=== PATIENT | female | born 1985 | race Caucasian/White ===

== ENCOUNTER → 2016-06-13 | Outpatient (CLI) | payer BC ==
--- NOTE | 2016-06-13 18:12 | CT ---
EXAMINATION TYPE: CT sinus w con DATE OF EXAM: 06/13/2016 5:33 PM COMPARISON: NONE HISTORY: Sinus pain and pressure to maxillary region, radiating down left jaw. CT DLP: 613.00 mGycm Automated exposure control for dose reduction was used. CONTRAST: CT scan of the facial bones is performed with IV Contrast, patient injected with 100 mL of Omnipaque 300. TECHNIQUE: CT scan of the sinuses is performed without contrast, axial images are obtained, coronal r eformatted images are also reviewed. FINDINGS: There is bilateral patency of the ostiomeatal complex. There is fairly normal aeration of t he paranasal sinuses. There is a 5 mm mucous retention cyst in the left maxillary sinus. Orbital kanika ins are intact. There is no pathologic enhancement. Maxilla is intact. Mastoid air cells show normal aeration. IMPRESSION: There is a tiny left maxillary sinus mucus retention cyst. Otherwise negative exam.
== END | disposition home or self-care (01) ==
LOC: RADCTMAIN 16:55
PROVIDERS: ATTEND Internal Medicine Critical Care Medicine
DX: Z88.1 Allergy status to other antibiotic agents (principal); Z88.5 Allergy status to narcotic agent; J34.1 Cyst and mucocele of nose and nasal sinus
CPT/HCPCS: 70487; Q9967

== ENCOUNTER → 2016-10-19 | Outpatient (CLI) | payer BC | LOC: CPPFTMAIN 13:07 | PROVIDERS: ATTEND Otolaryngology | DX: J45.909 Unspecified asthma, uncomplicated (principal) | CPT/HCPCS: 94060; 94726; 94729 ==

== ENCOUNTER → 2016-10-24 | Outpatient (CLI) | payer BC | LOC: PTMAIN 12:00 | PROVIDERS: ATTEND Otolaryngology | DX: R05 Cough (principal) | CPT/HCPCS: 31579 ==

== ENCOUNTER 2018-06-05 16:47 | Emergency (ER) | payer BC ==
[2018-06-05 17:32] VITALS: BP 143/82; PULSE 90; RESP 18; TEMP 98.3
--- NOTE | 2018-06-05 18:18 | XR ---
PROCEDURE: XR ankle complete RT - 3V DATE AND TIME: 06/05/2018 5:55 PM CLINICAL INDICATION: PHH; Pain TECHNIQUE: Department protocol COMPARISON: None FINDINGS: There is no fracture or malalignment. Mortise is intact. The soft tissues are unremarkable. IMPRESSION: NO ACUTE PROCESS.
--- NOTE | 2018-06-05 18:19 | XR ---
PROCEDURE: XR foot complete RT - 3V DATE AND TIME: 06/05/2018 5:55 PM CLINICAL INDICATION: PHH; Pain TECHNIQUE: Department protocol COMPARISON: None FINDINGS: There is no fracture or malalignment. The soft tissues are unremarkable. IMPRESSION: NO ACUTE PROCESS.
--- NOTE | 2018-06-05 18:42 | ED ---
Lower Extremity Injury HPI - General Chief Complaint: Extremity Injury, Lower Stated Complaint: rt ankle injury Time Seen by Provider: 06/05/18 17:35 Source: patient, RN notes reviewed Mode of arrival: ambulatory Limitations: no limitations - History of Present Illness Initial Comments: 32-year-old female presents emergency Department chief complaint of right ankle foot pain. Patient states she slipped on some stairs. Patient states there were wet WAS her ankle. She's had increased pain and swelling and bruising. She became concerned and felt that she be evaluated. Patient denies any other injuries no prior fractures. Denies any paresthesias. - Related Data Home Medications Medication Instructions Recorded Confirmed Omalizumab [Xolair] 150 mg SQ Q28D 06/05/18 06/05/18 Allergies Allergy/AdvReac Type Severity Reaction Status Date / Time acetaminophen [From Latta] Allergy SKIN Verified 06/05/18 18:25 TWITCHIN. AGITATION ceftaroline fosamil Allergy Rash/Hives Verified 06/05/18 18:25 hydrocodone bitartrate Allergy SKIN Verified 06/05/18 18:25 [From Latta] TWITCHIN. AGITATION vancomycin Allergy Rash/Hives Verified 06/05/18 18:25 Review of Systems ROS Statement: Those systems with pertinent positive or pertinent negative responses have been documented in the HPI. ROS Other: All systems not noted in ROS Statement are negative. Past Medical History Past Medical History: Asthma Additional Past Medical History / Comment(s): IBS, persistent cough for 7 weeks after 3 courses of antibiotics & steroids History of Any Multi-Drug Resistant Organisms: MRSA Date of last positivie culture/infection: 04/22/15 MDRO Source:: Bronch Wash Past Surgical History: Tonsillectomy Additional Past Surgical History / Comment(s): Bronchoscopy Past Anesthesia/Blood Transfusion Reactions: No Reported Reaction, Motion Sickness Past Psychological History: No Psychological Hx Reported Smoking Status: Never smoker Past Alcohol Use History: None Reported Past Drug Use History: None Reported - Past Family History Mother Family Medical History: No Reported History General Exam Limitations: no limitations General appearance: alert, in no apparent distress Neck exam: Present: normal inspection. Absent: tenderness, meningismus, lymphadenopathy Respiratory exam: Present: normal lung sounds bilaterally. Absent: respiratory distress, wheezes, rales, rhonchi, stridor Cardiovascular Exam: Present: regular rate, normal rhythm, normal heart sounds. Absent: systolic murmur, diastolic murmur, rubs, gallop, clicks Extremities exam: Present: other (Right ankle tenderness to palpation the lateral malleoli region, right lateral foot tenderness of the fifth metatarsal neurovascular intact there is moderate swelling and ecchymosis noted no proximal tib-fib tenderness) Neurological exam: Present: reflexes normal. Absent: motor sensory deficit Skin exam: Present: warm, dry, intact, normal color. Absent: rash Course Vital Signs 06/05/18 17:30 Temperature 98.3 F Pulse Rate 90 Respiratory 18 Rate Blood Pressure 143/82 O2 Sat by Pulse 97 Oximetry Medical Decision Making - Medical Decision Making 32-year-old female presented for right foot and ankle pain. X-rays were obtained which were negative for acute fracture. Patient will be discharged return parameters were discussed. Disposition Clinical Impression: Right ankle sprain Disposition: HOME SELF-CARE Condition: Stable Instructions (If sedation given, give patient instructions): Ankle Sprain (ED) Additional Instructions: Please return to the Emergency Department if symptoms worsen or any other concerns. Is patient prescribed a controlled substance at d/c from ED?: No Referrals: Corazon Moore DO [Primary Care Provider] - 1-2 days Time of Disposition: 18:41
== END 2018-06-05 19:04 | disposition home or self-care (01) ==
LOC: EC 16:47
DX: S93.401A Sprain of unspecified ligament of right ankle, initial encounter (principal); Z86.14 Personal history of Methicillin resistant Staphylococcus aureus infection; Z79.899 Other long term (current) drug therapy; Z88.1 Allergy status to other antibiotic agents; Z88.8 Allergy status to other drugs, medicaments and biological substances; Z88.5 Allergy status to narcotic agent; W10.9XXA Fall (on) (from) unspecified stairs and steps, initial encounter
CPT/HCPCS: 99283

== ENCOUNTER → 2019-08-22 | Outpatient (CLI) | payer BC | END | disposition home or self-care (01) | LOC: LABWHC1 09:58 | PROVIDERS: ATTEND Family Medicine | DX: R51 Headache (principal) | CPT/HCPCS: U0003; C9803 ==

== ENCOUNTER → 2023-03-01 | Outpatient (CLI) | payer BC ==
--- NOTE | 2023-03-01 15:52 | XR ---
EXAMINATION TYPE: XR wrist complete LT DATE OF EXAM: 03/01/2023 COMPARISON: NONE HISTORY: 37-year-old female M25.532, left wrist pain TECHNIQUE: 4 views FINDINGS: The radiocarpal and distal radioulnar joint as well as the midcarpal compartment appear int act. No acute fracture, subluxation, dislocation is seen. IMPRESSION: No acute osseous abnormality seen.
== END | disposition home or self-care (01) ==
LOC: RADXRMAIN 13:35
PROVIDERS: ATTEND Family Medicine
DX: M25.532 Pain in left wrist (principal)